=== PATIENT | female | born 1955 | race Caucasian/White ===

== ENCOUNTER 2021-07-16 00:28 | Emergency (ER) | payer MEDICAID ==
[~2021-07-16] VITALS: Ht 172.7 cm; Wt 54.4 kg
[2021-07-16] MEDS ORDERED: VISCOUS LIDOCAINE 2% 15 ML UDC MM STA (01:08)
[2021-07-16 01:10] VITALS: BP 154/82
[2021-07-16] MEDS ORDERED: ACETAMINOPHEN 325MG TABLET PO ONE (02:15)
[2021-07-16] MEDS ORDERED: TOPUD MT (02:17)
[2021-07-16] MEDS ORDERED: XLV MT (02:17)
== END 2021-07-16 03:18 | disposition home or self-care (01) ==
LOC: ER 00:28
DX: K12.0 Recurrent oral aphthae (principal); I49.9 Cardiac arrhythmia, unspecified
CPT/HCPCS: 93005; 99283